=== PATIENT | female | born 1950 | race Two or more races ===

== ENCOUNTER 2020-02-06 19:56 | Emergency (ER) | payer MEDICARE, MEDICAID ==
[~2020-02-06] VITALS: Ht 152.4 cm; Wt 55.0 kg
[2020-02-06] MEDS ORDERED: ACETAMINOPHEN 325MG TABLET PO ONE (22:30)
[2020-02-06 23:35] VITALS: BP 164/84
== END 2020-02-06 23:50 | disposition home or self-care (01) ==
LOC: ER 19:56
DX: S60.212A Contusion of left wrist, initial encounter (principal); I10 Essential (primary) hypertension; I25.2 Old myocardial infarction; E78.00 Pure hypercholesterolemia, unspecified; Z98.890 Other specified postprocedural states; X58.XXXA Exposure to other specified factors, initial encounter; Y93.89 Activity, other specified; Y92.89 Other specified places as the place of occurrence of the external cause; Y99.8 Other external cause status
CPT/HCPCS: 73130; 99283